=== PATIENT | female | born 1990 | race Caucasian/White ===

== ENCOUNTER → 2016-04-20 | Outpatient (CLI) | payer OTHER ==
--- NOTE | 2016-04-20 12:30 | REP ---
Right lower quadrant abdominal ultrasound for appendicitis: The the patient is at to 21 weeks gestational age. The appendix could not be visualized. There is no abdominal pain with transducer pressure. There is no rebound tenderness. The right and left ovaries are visualized: There is a right ovarian 1.0 cm cyst. With the Doppler assessment there is vascular flow in both ovaries. The Doppler resistive index of the intraparenchymal arteries in the right ovary is 0.52 and in the left ovary 0.66. The right kidney is visualized. There is mild right renal hydronephrosis. Signed by Jose Hewitt MD 04/20/2016 12:20 P
== END ==
LOC: M RAD 11:38
PROVIDERS: ATTEND Student in an Organized Health Care Education/Training Program
DX: O99.89 Other specified diseases and conditions complicating pregnancy, childbirth and the puerperium (principal); N13.30 Unspecified hydronephrosis; Z3A.21 21 weeks gestation of pregnancy

== ENCOUNTER 2016-08-11 21:25 | Inpatient (IN) | payer OTHER ==
[~2016-08-11] VITALS: Ht 152.4 cm; Wt 60.0 kg
[2016-08-11 22:00] VITALS: BP 123/77
[2016-08-11] MEDS ORDERED: LR 1,000 ML IV SCH (23:00)
[2016-08-11] MEDS ORDERED: PENICILLIN G POTASSIUM IV 5 MU in D5W MINI-BAG PLUS 100 ML IV STA (23:00)
[2016-08-11] MEDS ORDERED: miSOPROStol 50 MCG 1/2 TAB (S0191) PO ONE (23:15)
[2016-08-11] MEDS ORDERED: LACTATED RINGER'S 1000 ML IV ONE (23:15)
[2016-08-11 23:27] LABS: MEAN CORPUSCULAR HEMOGLOBIN 32.3 pg (27.0-33.0); MEAN CORPUSCULAR HGB CONC 35.5 g/dl (32.0-36.5); MEAN CORPUSCULAR VOLUME 90.9 fl (80.0-96.0); RED CELL DISTRIBUTION WIDTH 12.4 % (11.5-14.5); WHITE BLOOD COUNT 17.7 K/mm3 (4.0-10.0)
[2016-08-12] VITALS (28 sets, daily range): BP systolic 92–138; BP diastolic 54–83
[2016-08-12] MEDS ORDERED: miSOPROStol 50 MCG 1/2 TAB (S0191) PO ONE
--- NOTE | 2016-08-12 02:50 | HPE ---
DATE OF ADMISSION: 08/11/2016 This lady is a 25-year-old 1, para 0, last menstrual period (LMP) 11/21/2015, estimated date of confinement (EDC) 08/27/2016, at 39+ weeks of gestation with a history of spontaneous rupture of membranes at 0837 p.m. with clear liquor, moderate amount and occasional contractions. She is known to be group B Streptococcus (GBS) positive and the urine sensitivity has not been established. Her labs are O positive, HIV negative, hepatitis negative, RPR negative, rubella immune. Varicella by history. Pap normal. GBS positive in the urine. Gonorrhea and chlamydia are negative. 1-hour glucose is 80 and CF was negative. The rest of the examination is unremarkable. She has a category one strip with the occasional contraction. She did have a 15 x 15 acceleration, but she did have a spontaneous deceleration a little bit prolonged when she turned over, but when she reverted back to her back, the baseline came up to the normal of 120 beats per minute with good variability of 6-25 beats per minute. She is normocephalic, atraumatic. Neck full range of motion. Pupils equal and reactive to light. Chest is clear bilaterally to bases. No wheezes or rhonchi. No costovertebral angle (CVA) tenderness. Symphysis fundus height is appropriate. Four quadrant bowel sounds are noted and a category one strip was noted. On pelvic examination, she was a fingertip way, posterior, moderate amount of fluid in the bed, clear in nature, -3 station, not well applied to the cervix, about 50% effaced. She has no lesions or pruritus. She does have acne, a significant amount on her face. She has no arthralgia or myalgia. No complaints of cough, wheezes, shortness of breath or dyspnea on exertion. No allergies. No chest pain. Not bleeding. Neurologically complete. No incontinence. No nausea, vomiting, diarrhea or constipation. No diabetic issues. Gynecological history is unremarkable. Past medical history unremarkable. Surgical history noncontributory. She does not smoke or drink or abuse drugs. She is . There is no domestic violence. Her blood pressure is 123/77, respirations are 18, pulse is 83, and temperature is 98.6. Urine is 1.010, pH 6, negative, negative, negative. Our plan of management is to hydrate the patient, intravenous (IV) antibiotics in the form of penicillin G. Cervical ripening may be initiated in a couple of hours if she does not progress to active labor. We discussed Cytotec, Pitocin. She is a candidate for Wolf bulb, but not at this time as her pain threshold is quite low, epidural as appropriately needed. In summary, we have a term gestation, ruptured membranes, cervical ripening may be needed, category one strip.
[2016-08-12] MEDS: PENICILLIN G POTASSIUM IV 2.5 MU in D5W 100 ML IV SCH ×3 (03:44→12:17)
[2016-08-12] MEDS ORDERED: PRENTAB55 PO (05:09)
[2016-08-12] MEDS ORDERED: BUTORPHANOL 2 MG/ML INJ (J0595) IV ONE ×2 (05:45→08:45)
[2016-08-12] MEDS ORDERED: PROMETHAZINE INJ 25 MG/ML VIAL (J2550) IV ONE (05:45)
[2016-08-12] MEDS ORDERED: miSOPROStol 50 MCG 1/2 TAB (S0191) PO SCH (09:00)
--- NOTE | 2016-08-12 09:37 | IPNPDOC ---
Text Note Date of Service The patient was seen on 08/12/16. NOTE 12AUG2016 @ 0920 Assumed care of patient from Dr. Anaya with report @ 0830. 25 yo G1 @ 37+2 by LMP([id number]) and 7+2 wk US on 11JAN2016. Presented to L&D triage on 11AUG2016 @ approx 2029 with SROM of clear fluid. She was not having ctxs. Denied DFM and VB. S: resting in bed on her right side with peanut ball. Reports her CTX are getting worse. Spouse is at bedside. Stated she didn't want to have and epidural in labor, but she has changed her mind. O: VS- WNL, afebrile FHR- 130, mod variability, + accels, no decels CTXs- none SVE- @ 0845 by Denise RN: /post SROM x 13 hours, fluid remains clear, she remains afebrile with normal pulse and normal range FHR, WBC 17,000 EFW- 2900 grams VTX by Evelio's PMH- DENIES PSH- wisdom teeth 2007 STD- denies hx O positive GBS positive- adequately treated Stadol and phenergan given at 0600 A: 25 yo G1 @ 37+2 by LMP([id number]) and 7+2 wk US on 11JAN2016. SROM with clear fluid x 13 hours. No s/s of infection, CAT I FHR, no cervical change noted. P: Continue to monitor and assess, reassess in 4 hours or prn after PO cytotec 50 mcg, stadol now. VS,Fishbone, I+O VS, Fishbone, I+O Laboratory Tests 08/11/16 23:13 Red Blood Count 3.82 L, Mean Corpuscular Volume 90.9, Mean Corpuscular Hemoglobin 32.3, Mean Corpuscular Hemoglobin Concent 35.5, Red Cell Distribution Width 12.4 Vital Signs Date Time Temp Pulse Resp B/P (MAP) Pulse Ox O2 Delivery O2 Flow Rate FiO2 08/12/16 09:12 16 Room Air 08/12/16 06:40 98.9 87 115/72 (86) I&O- Last 24 Hours up to 6 AM 08/12/16 06:00 Intake Total 415 ml Balance 415 ml VIVEK BECERRA CNM Aug 12, 2016 09:37
--- NOTE | 2016-08-12 12:37 | IPNPDOC ---
Text Note Date of Service The patient was seen on 08/12/16. NOTE 12AUG2016 @ [id number] 25 yo G1 @ 37+2 by LMP([id number]) and 7+2 wk US on 11JAN2016. Presented to L&D triage on 11AUG2016 @ approx 2030 with SROM of clear fluid. She was not having ctxs. Denied DFM and VB. S: Reports her CTX are getting worse. She is breathing through the CTXs. Spouse is at bedside. Stated wants her epidural O: VS- WNL, afebrile FHR- 140, min-mod variability, no accels, persistent late decels CTXs- Q 3-5 SVE- @ 0845 by Denise RN: 1//post SROM x 15 hours, fluid remains clear, she remains afebrile with normal pulse and normal range FHR, WBC 17,000 GBS positive- adequately treated Stadol given at 0915 Reviewed FHR tracing with Dr. Craft. Continue with plan of care A: 25 yo G1 @ 37+2 by LMP([id number]) and 7+2 wk US on 11JAN2016. SROM with clear fluid x 15 hours. No s/s of infection, CAT II FHR P: Continue to monitor and assess, reassess in 1.[address] mckeon balloon at next exam VS,Bennye, I+O VS, [place]unbone, I+O Laboratory Tests 08/11/16 23:13 Red Blood Count 3.82 L, Mean Corpuscular Volume 90.9, Mean Corpuscular Hemoglobin 32.3, Mean Corpuscular Hemoglobin Concent 35.5, Red Cell Distribution Width 12.4 Vital Signs Date Time Temp Pulse Resp B/P (MAP) Pulse Ox O2 Delivery O2 Flow Rate FiO2 08/12/16 11:15 117 117/66 (83) 08/12/16 09:12 16 Room Air 08/12/16 06:40 98.9 I&O- Last 24 Hours up to 6 AM 08/12/16 06:00 Intake Total 415 ml Balance 415 ml VIVEK BECERRA CNM Aug 12, 2016 12:36
[2016-08-12] MEDS ORDERED: FENTANYL 2MCG/ML ROPIVACAINE 0.2% IN 0.9% NACL 200ML IVBAG As Ordered ONE (12:38)
--- NOTE | 2016-08-12 12:40 | IPNPDOC ---
Text Note Date of Service The patient was seen on 08/12/16. NOTE 12AUG2016 @ 1230 25 yo G1 @ 37+2 by LMP([id number]) and 7+2 wk US on 11JAN2016. Presented to L&D triage on 11AUG2016 @ approx 2030 with SROM of clear fluid. S: resting in bed on her right side with peanut ball. Reports her CTX are getting worse. Spouse is at bedside. Stated she didn't want to have and epidural in labor, but she has changed her mind. O: VS- WNL, afebrile FHR- 140, mod variability, + accels, intermittent late decels CTXs- Q 2-4, lasting < 90 seconds, palpated as strong, resting tone palpated as soft SVE- 4/100/-2, vtx/soft/ant SROM x 16.5 hours, fluid remains clear, she remains afebrile with normal pulse and normal range FHR, WBC 17,000 GBS positive- adequately treated A: 25 yo G1 @ 37+2 by LMP([id number]) and 7+2 wk US on 11JAN2016. SROM with clear fluid x 16.5 hours. No s/s of infection, CAT II FHR, cervical change noted. P: Continue to monitor and assess, initiate pitocin IOL, reassess in 2 hours or prn, epidural now. VS,Fishbone, I+O VS, Fishbone, I+O Laboratory Tests 08/11/16 23:13 Red Blood Count 3.82 L, Mean Corpuscular Volume 90.9, Mean Corpuscular Hemoglobin 32.3, Mean Corpuscular Hemoglobin Concent 35.5, Red Cell Distribution Width 12.4 Vital Signs Date Time Temp Pulse Resp B/P (MAP) Pulse Ox O2 Delivery O2 Flow Rate FiO2 08/12/16 11:15 117 117/66 (83) 08/12/16 09:12 16 Room Air 08/12/16 06:40 98.9 I&O- Last 24 Hours up to 6 AM 08/12/16 06:00 Intake Total 415 ml Balance 415 ml VIVEK BECERRA CNM Aug 12, 2016 12:40
[2016-08-12] MEDS ORDERED: OXYTOCIN DRIP 30 UNITS in APPROPRIATE DILUENT 1 EA IV SCH ×2 (12:45→16:04)
[2016-08-12] MEDS ORDERED: EPIDURAL COMMENT XX SCH (13:15)
[2016-08-12] MEDS ORDERED: EPIDURAL/PCA KEYS XX PRN (13:15)
[2016-08-12] MEDS ORDERED: ONDANSETRON 4MG/2ML VIAL (J2405) IV PRN ×2 (13:15→16:15)
[2016-08-12] MEDS ORDERED: diphenhydrAMINE INJ 50MG/ML VIAL (J1200) IV PRN (13:15)
[2016-08-12] MEDS ORDERED: NALOXONE INJ 0.4 MG/1 ML VIAL (J2310) IV PRN (13:15)
[2016-08-12] MEDS ORDERED: REFRIGERATOR IV KEYS XX PRN (13:15)
[2016-08-12] MEDS ORDERED: ePHEDrine SULFATE 25 MG/5 ML(5MG/ML) SYRINGE IV PRN (13:15)
[2016-08-12] MEDS ORDERED: FENTANYL/ROPIVACAINE/NACL BAG 200 ML EPIDURAL SCH (13:15)
[2016-08-12] MEDS ORDERED: DOCUSATE SODIUM 100 MG CAP PO PRN (16:15)
[2016-08-12] MEDS ORDERED: MOM 30ML SUSPENSION UDC PO PRN (16:15)
[2016-08-12] MEDS ORDERED: ACETAMINOPHEN 500 MG TAB PO PRN (16:15)
[2016-08-12] MEDS ORDERED: PROMETHAZINE 25 MG TAB PO PRN (16:15)
[2016-08-12] MEDS ORDERED: DIBUCAINE 1% OINTMENT 30GM TOP PRN (16:15)
--- NOTE | 2016-08-12 16:34 | DNPDOC ---
[facility] Delivery Note Delivery Note DATE OF DELIVERY: Aug 12, 2016 at 1457 PREDELIVERY DIAGNOSIS: 37+6/7 weeks' gestation and labor. POST DELIVERY DIAGNOSIS: Delivered. PROCEDURE: CONVERTER OPERATOR: Ann Moreno CNM ANESTHESIA: epidural ESTIMATED BLOOD LOSS: 350 mL. FINDINGS: 5 pound 14 ounce F , Score 8/9, nuchal cord times 1. DELIVERY SUMMARY: Pt admitted to L&D SROM clear fluid; after 2 doses of cytotec progressed to c/c/+2 with epidural infusing and a minimal desire to push; delivery was via of a viable female to a clean field; the presented occiput anterior with nuchal cord x 1noted; anterior shoulder(right) delivered with mild downward traction, then the posterior shoulder delivered with mild upward traction; remainder of corpus delivered spontaneously; placed on mother's abdomen cord. Bulb suction was performed and initial cleaning completed, delayed cord clamping x 3 minutes, then cord clamped x 2 and cut by FOB; the child had a vigorous cry and was moved to mother's chest for [id number]; pitocin was started with delivery of the anterior shoulder; 3 vessel cord and normal placenta were delivered without complications approx 5 minutes later; fundal massage was applied and vaginal vault was swept for clots ; vagina and perineum examined; Right labial laceration noted and repaired by Dr. Craft. Bilat posterior vaginal vault lacerations repaired in the usual fashion. Fundus firm at U-1. CML=323 ml, Infant had 8/9; mother and are bonding well and were stable in the delivery room; anticipate routine PP course. Delivering Provider: AALIYAH Dawson KELLI C. CNM Aug 12, 2016 16:34
[2016-08-12] MEDS: PRENATAL VITAMIN TAB PO SCH (18:53)
[2016-08-12] MEDS: IBUPROFEN 800 MG TAB PO PRN (22:05)
[2016-08-13 05:39] VITALS: BP 119/63
[2016-08-13] MEDS: PRENATAL VITAMIN TAB PO SCH (07:12)
[2016-08-13] MEDS: IBUPROFEN 800 MG TAB PO PRN ×2 (07:13→18:11)
--- NOTE | 2016-08-13 07:54 | IPNPDOC ---
Progress Note Date of Service The patient was seen on 08/13/16 at 07:49. Progress Note PPD # 1 s/p of female infant 5 lbs 14 oz. SROM x 18 hours without any sx of infection. Bilat post vaginal vault lacerations and Right labial laceration all repaired in usual fashion. Doing well. S: pt reports the lower back and left hip are sore, but she is feeling better. Denies ETIENNE, SOB, CP, f/c/n/v. Tolerating a regular diet. Voiding without difficulty, +flatus, no BM at this time. Pt used one marcie-pad overnight. Denies breast sx. Pt is ambulating without difficulty. O: A&O x 3, VS WNL, afebrile, HR RRR, no m/r/g, Lungs CTA, abdomen soft NTTP, fundus firm @ U without tenderness, labial laceration is well approximated. No edema in bilat LE A: 25 yo G1 n P1001 s/p with right labial lac and bilat post vault laceration doing well PPD #1. P: Continue routine PP care as appropriate Ambulate Q 1 hour while awake Plan to discharge to home on Sunday Continue to assist with as needed Strict pelvic rest for 6-8 weeks Plan paragard for BC, understands it will be placed 1-2 wks after 6 wk PP visit and she must be IC free for 2 wks prior to placement and have a negative blood test the day before Regular diet Motrin and Tylenol PRN for discomfort VS, I&O, 24H, Fishbone Vital Signs/I&O Vital Signs Date Time Temp Pulse Resp B/P (MAP) Pulse Ox O2 Delivery O2 Flow Rate FiO2 08/13/16 05:39 98.0 92 16 119/63 (81) 08/12/16 09:12 Room Air I&O- Last 24 Hours up to 6 AM 08/13/16 05:59 Output Total 1510 ml Balance -1510 ml VIVEK BECERRA CNM Aug 13, 2016 07:54
[2016-08-13 17:51] VITALS: BP 116/71
[2016-08-14] MEDS: IBUPROFEN 800 MG TAB PO PRN (02:45)
[2016-08-14 06:29] VITALS: BP 103/66
[2016-08-14] MEDS ORDERED: ACET50TA PO (08:23)
[2016-08-14] MEDS ORDERED: IBUP-1114 PO (08:23)
[2016-08-14] MEDS ORDERED: COLA100C3 PO (08:23)
[2016-08-14] MEDS ORDERED: NUPE1OIN2 TOP (08:24)
[2016-08-14] MEDS: PRENATAL VITAMIN TAB PO SCH (09:00)
== END 2016-08-14 10:45 | disposition home or self-care (01) | DRG 775 ==
LOC: M LDO 21:25 → M LDI 23:00 → M OBS 08-12 18:01
PROVIDERS: ADMIT Obstetrics & Gynecology; ATTEND Obstetrics & Gynecology
PROC: 10E0XZZ Delivery of Products of Conception, External Approach (ICD-10-PCS; principal; 2016-08-12)
PROC: 0HQ9XZZ Repair Perineum Skin, External Approach (ICD-10-PCS; 2016-08-12)
DX: O70.0 First degree perineal laceration during delivery (principal); Z37.0 Single live birth; Z3A.39 39 weeks gestation of pregnancy; O99.820 Streptococcus B carrier state complicating pregnancy